=== PATIENT | female | born 1990 | race Caucasian/White ===

== ENCOUNTER 2018-11-15 04:52 | Inpatient (IN) ==
[2018-11-15 05:56] LABS: Apearance,Urine Slightly Hazy (Clear); Bacteria,Urine Occasional /HPF (Few); Bilirubin,Urine Negative (Negative); Blood, Urine Negative (Negative); Glucose,Urine (UA) Negative (Negative); Ketones,Urine Negative (Negative); Nitrite,Urine Negative (Negative); Protein,Urine Negative; RBC,Urine 1 /HPF (0-4); Squamous Epithelial Cell,Urine Occasional /HPF (0-10); Urine Color Yellow (Yellow); Urine Specific Gravity 1.004 (1.001-1.035); Urine Urobilinogen < 2.0 EU/DL (0.2-1.0); WBC,Urine 2 /HPF (0-6)
[2018-11-15] MEDS ORDERED: ONDANSETRON 4 MG/2 ML VIAL IV PRN ×2 (07:22→16:29)
[2018-11-15] MEDS ORDERED: MEPERIDINE 50 MG/1 ML VIAL IV PRN (07:22)
[2018-11-15] MEDS ORDERED: BUTORPHANOL 2 MG/ML VIAL IV PRN (07:22)
[2018-11-15] MEDS ORDERED: LACTATED RINGERS 1,000 ML IV SCH ×2 (07:30→16:30)
[2018-11-15] MEDS ORDERED: OXYTOCIN/LR 20 UNIT/1,000 ML BAG IV SCH (07:30)
[2018-11-15] MEDS ORDERED: PROMETHAZINE 25 MG/1 ML VIAL IM ONE (07:35)
[2018-11-15] MEDS ORDERED: CITRIC ACID/SODIUM CITRATE 30 ML UDCUP PO ONE (07:35)
[2018-11-15] MEDS ORDERED: NALOXONE 0.4 MG/ML VIAL IV PRN (07:35)
[2018-11-15] MEDS ORDERED: ePHEDrine 50 MG/ML AMP IV PRN (07:35)
[2018-11-15] MEDS ORDERED: ONDANSETRON 4 MG/2 ML VIAL IV ONE (07:35)
[2018-11-15] MEDS ORDERED: FAMOTIDINE 20 MG/2 ML VIAL IV ONE (07:35)
[2018-11-15] MEDS ORDERED: hydrOXYzine HCL 25 MG/1 ML VIAL IM PRN (07:35)
[2018-11-15] MEDS ORDERED: diphenhydrAMINE 50 MG/1 ML VIAL IV PRN ×2 (07:35)
[2018-11-15] MEDS ORDERED: LACTATED RINGERS 1,000 ML IV ONE (07:35)
[2018-11-15 07:36] LABS: Basophils # 0.1 10*3/uL (0.0-0.2); Basophils % 0.4 % (0.0-0.8); Eosinophils # 0.1 10*3/uL (0.0-0.87); Eosinophils % 0.7 % (0.00-10.9); Hematocrit 39.7 VOL% (35.7-47.0); Hemoglobin 13.1 GM/DL (12.0-16.0); Immature Granulocytes % 0.5 %; Immature Granulocytes Absolute 0.06 #; Lymphocytes # 3.6 10*3/uL (1.4-4.0); Lymphocytes % 28.7 % (21.3-54.2); Mean Corpuscular Hemoglobin 28 PG (27-34); Mean Corpuscular Volume 85.9 FL (87-102); Mean Platelet Volume 13.4 FL (9.6-12.0); Monocytes # 0.7 10*3/uL (0.11-0.8); Monocytes % 5.5 % (1.7-12.7); NRBC # 0.02 10*3/uL; Neutrophils % 64.2 % (38.7-73.9); Platelet Count 214 T/CUMM (130-400); Red Blood Count 4.62 MC/CUMM (3.8-5.5); Red Cell Distribution Width 12.7 % (9.3-17.3); White Blood Count 12.4 T/CUMM (4-12)
[2018-11-15] MEDS ORDERED: fentaNYL 2 MCG/ROPIV 0.2% EPID 100 ML EPIDURAL SCH (08:00)
[2018-11-15 09:20] LABS: Apearance,Urine CLEAR (Clear); Bilirubin,Urine Negative (Negative); Blood, Urine Negative (Negative); Glucose,Urine (UA) Negative (Negative); Ketones,Urine Negative (Negative); Nitrite,Urine Negative (Negative); Protein,Urine Negative; RBC,Urine <1 /HPF (0-4); Squamous Epithelial Cell,Urine Occasional /HPF (0-10); Urine Color Straw (Yellow); Urine Specific Gravity 1.003 (1.001-1.035); Urine Urobilinogen < 2.0 EU/DL (0.2-1.0); WBC,Urine <1 /HPF (0-6)
[2018-11-15] MEDS ORDERED: OXYTOCIN/LR 30 UNIT/1,000 ML BAG IV ONE (15:26)
[2018-11-15] MEDS ORDERED: OXYTOCIN 10 UNIT/ML VIAL IM ONE (15:26)
[2018-11-15] MEDS ORDERED: ceFAZolin 2,000 MG in PREMIX 1 EACH IV ONE (15:38)
[2018-11-15] MEDS ORDERED: MORPHINE 10 MG/10 ML VIAL ONE (15:39)
[2018-11-15] MEDS ORDERED: KETOROLAC 60 MG/2 ML VIAL IM ONE (15:39)
[2018-11-15] MEDS ORDERED: LIDOCAINE MPF 2% /EPI 20 ML VIAL ONE (15:39)
[2018-11-15] MEDS ORDERED: PHENYLEPHRINE 1 MG/10 ML SYRINGE IV ONE (15:39)
[2018-11-15 16:17] LABS: Cord Arterial Blood HCO3 21.2 MMOL/L
[2018-11-15 16:20] LABS: Cord Venous Blood HCO3 22.3 MMOL/L; Cord Venous Blood PCO2 46.3 MMHG
[2018-11-15 16:22] LABS: Cord Venous Blood PO2 15.8
[2018-11-15] MEDS ORDERED: MAGNESIUM HYDROXIDE SUSP 30 ML UDCUP PO PRN (16:29)
[2018-11-15] MEDS ORDERED: OXYTOCIN/LR 20 UNIT/1,000 ML BAG IV ONE (16:29)
[2018-11-15] MEDS ORDERED: RHO(D) IMMUNE GLOBULIN 300 MCG SYRINGE IM ONE (16:29)
[2018-11-15] MEDS ORDERED: SIMETHICONE CHEW 80 MG TABLET PO PRN (16:29)
[2018-11-15] MEDS ORDERED: ACETAMINOPHEN 325 MG TABLET PO PRN (16:29)
[2018-11-15] MEDS: ONDANSETRON 4 MG/2 ML VIAL IV PRN (21:05)
[2018-11-15] MEDS: HYDROmorphone 2 MG/1 ML VIAL IV PRN (21:08)
[2018-11-15] MEDS: DOCUSATE SODIUM 100 MG CAPSULE PO SCH (21:14)
[2018-11-15] MEDS: diphenhydrAMINE 50 MG/1 ML VIAL IV PRN (21:25)
[2018-11-15] MEDS: KETOROLAC 30 MG/1 ML VIAL IV SCH (22:52)
[2018-11-16] MEDS: ceFAZolin 1,000 MG in SYRINGE 1 EACH IV SCH ×2 (00:03→08:51)
[2018-11-16 00:44] LABS: Basophils % 0.3 % (0.0-0.8); Eosinophils % 0.3 % (0.00-10.9); Hematocrit 27.9 VOL% (35.7-47.0); Hemoglobin 9.2 GM/DL (12.0-16.0); Immature Granulocytes % 0.4 %; Immature Granulocytes Absolute 0.05 #; Lymphocytes % 16.4 % (21.3-54.2); Mean Corpuscular Hemoglobin 28 PG (27-34); Mean Corpuscular Volume 85.6 FL (87-102); Mean Platelet Volume 13.1 FL (9.6-12.0); Monocytes # 0.8 10*3/uL (0.11-0.8); Monocytes % 6.5 % (1.7-12.7); Neutrophils # 9.1 10*3/uL (1.4-7.4); Neutrophils % 76.1 % (38.7-73.9); Platelet Count 143 T/CUMM (130-400); Red Blood Count 3.26 MC/CUMM (3.8-5.5); Red Cell Distribution Width 12.5 % (9.3-17.3); White Blood Count 11.9 T/CUMM (4-12)
[2018-11-16] MEDS ORDERED: hydrOXYzine HCL 25 MG/1 ML VIAL IM PRN (00:56)
[2018-11-16] MEDS: ONDANSETRON 4 MG/2 ML VIAL IV PRN (01:27)
[2018-11-16] MEDS: diphenhydrAMINE 50 MG/1 ML VIAL IV PRN (01:30)
[2018-11-16] MEDS: HYDROmorphone 2 MG/1 ML VIAL IV PRN (01:33)
[2018-11-16] MEDS ORDERED: HYDROCORTISONE 2.5% RECTAL CREAM 30 GM TUBE TOP PRN (02:23)
[2018-11-16] MEDS ORDERED: WITCH HAZEL PADS 100/JAR TOP PRN (02:23)
[2018-11-16] MEDS: KETOROLAC 30 MG/1 ML VIAL IV SCH (04:18)
[2018-11-16] MEDS ORDERED: BISACODYL 10 MG SUPP RECTAL PRN (05:41)
[2018-11-16] MEDS: MAGNESIUM HYDROXIDE SUSP 30 ML UDCUP PO SCH ×3 (08:37→22:07)
[2018-11-16] MEDS: SIMETHICONE CHEW 80 MG TABLET PO SCH ×2 (08:37→14:00)
[2018-11-16] MEDS: METOCLOPRAMIDE 10 MG TABLET PO SCH ×2 (08:37→15:49)
[2018-11-16] MEDS: DOCUSATE SODIUM 100 MG CAPSULE PO SCH ×3 (08:37→22:07)
[2018-11-16] MEDS: MULTIVITAMIN (PRENATAL) TABLET PO SCH (08:37)
[2018-11-16 08:41] LABS: Basophils % 0.4 % (0.0-0.8); Eosinophils # 0.1 10*3/uL (0.0-0.87); Eosinophils % 0.5 % (0.00-10.9); Hematocrit 27.6 VOL% (35.7-47.0); Immature Granulocytes % 0.5 %; Immature Granulocytes Absolute 0.05 #; Lymphocytes # 1.9 10*3/uL (1.4-4.0); Lymphocytes % 21.2 % (21.3-54.2); Mean Corpuscular HGB Conc 32.6 GM/DL (32-36); Mean Corpuscular Hemoglobin 28 PG (27-34); Mean Corpuscular Volume 86.5 FL (87-102); Mean Platelet Volume 13.7 FL (9.6-12.0); Monocytes # 0.7 10*3/uL (0.11-0.8); Monocytes % 7.7 % (1.7-12.7); Neutrophils # 6.4 10*3/uL (1.4-7.4); Neutrophils % 69.7 % (38.7-73.9); Platelet Count 135 T/CUMM (130-400); Red Blood Count 3.19 MC/CUMM (3.8-5.5); Red Cell Distribution Width 12.5 % (9.3-17.3); White Blood Count 9.1 T/CUMM (4-12)
[2018-11-16] MEDS: IBUPROFEN 800 MG TABLET PO PRN ×2 (08:52→19:43)
[2018-11-16] MEDS ORDERED: ceFAZolin 1,000 MG in SYRINGE 1 EACH IV SCH (09:00)
[2018-11-16] MEDS: SIMETHICONE CHEW 80 MG TABLET PO PRN (19:44)
[2018-11-16] MEDS: FERROUS SULFATE 325 MG TABLET PO SCH (22:00)
[2018-11-17] MEDS: METOCLOPRAMIDE 10 MG TABLET PO SCH ×4 (00:39→15:05)
[2018-11-17] MEDS: IBUPROFEN 800 MG TABLET PO PRN ×2 (06:15→16:11)
[2018-11-17] MEDS ORDERED: MAGNESIUM CITRATE 300 ML BOTTLE PO ONE (07:15)
[2018-11-17] MEDS: MAGNESIUM HYDROXIDE SUSP 30 ML UDCUP PO SCH ×2 (08:03→21:23)
[2018-11-17] MEDS: DOCUSATE SODIUM 100 MG CAPSULE PO SCH ×2 (08:03→21:23)
[2018-11-17] MEDS: SIMETHICONE CHEW 80 MG TABLET PO PRN ×2 (08:03→19:34)
[2018-11-17] MEDS: FERROUS SULFATE 325 MG TABLET PO SCH ×3 (08:03→21:23)
[2018-11-17] MEDS: MULTIVITAMIN (PRENATAL) TABLET PO SCH (08:03)
[2018-11-18] MEDS: IBUPROFEN 800 MG TABLET PO PRN ×2 (02:00→08:36)
[2018-11-18 07:56] VITALS: BP 124/64
[2018-11-18] MEDS: DOCUSATE SODIUM 100 MG CAPSULE PO SCH (08:33)
[2018-11-18] MEDS: FERROUS SULFATE 325 MG TABLET PO SCH (08:33)
[2018-11-18] MEDS: MULTIVITAMIN (PRENATAL) TABLET PO SCH (08:33)
[2018-11-18] MEDS: MAGNESIUM HYDROXIDE SUSP 30 ML UDCUP PO SCH (10:17)
== END 2018-11-18 11:15 | disposition home or self-care (01) | DRG 788 ==
LOC: N.LDOUT 04:52 → N.LD 04:58 → N.OB 20:35
PROVIDERS: ADMIT Obstetrics & Gynecology; ATTEND Obstetrics & Gynecology
PROC: LDCSECT (ICD-10-PCS; 2018-11-15 15:30)